=== PATIENT | male | born 1960 | race American Indian/Alaskan Native ===

== ENCOUNTER 2021-05-13 07:53 | Outpatient (CLI) | payer OTHER ==
--- NOTE | 2021-05-13 09:52 | Cat Scan Report ---
CT NECK WITH CONTRAST HISTORY: Right neck pain and swelling COMPARISON: None. TECHNIQUE: Routine CT of the neck is performed following intravenous contrast. All CT scans at this [facility] are performed using CT dose reduction for ALARA by means of automated exposure control. CONTRAST: 100 ml of Omnipaque 300 FINDINGS: Skull Base: No significant abnormality. Parotid, Carotid, Retropharyngeal, Prevertebral, Pharyngeal Mucosal, and [employer] Spaces: No abnorm al mass, enhancing lesion or other significant abnormality. Airway: Patent and without significant abnormality. Lymphatics: No lymphadenopathy. Vasculature: No significant abnormality. Osseous Structures: Mild multilevel cervical spondylosis. Additional findings: A large calcified stone in the right submandibular gland measuring up to 2.0 x 1 .3 x 1.6 cm. 3 smaller stones in the right submandibular gland measure up to 5 mm. The right submandi bular gland appears age atrophic with fatty atrophy. There also is a 1.0 x 0.6 cm stone in the distal right submandibular duct on axial image 41. The right submandibular duct appears slightly dilated co mpared to the left side. No additional salivary stones. IMPRESSION: Right-sided submandibular sialolithiasis as described above. Signer Name: Jey Rodríguez Jr, MD Signed: 05/13/2021 9:47 AM Workstation Name: [id number]
== END 2021-05-13 07:54 | disposition home or self-care (01) ==
LOC: CT 07:53
PROVIDERS: ATTEND Internal Medicine
DX: K11.5 Sialolithiasis (principal); M79.89 Other specified soft tissue disorders
CPT/HCPCS: 36415; 70491; 82565; 84520; Q9967

== ENCOUNTER 2021-07-01 09:22 | Outpatient (CLI) | payer OTHER ==
--- NOTE | 2021-07-01 11:58 | Magnetic Resonance Report ---
MRA HEAD WITHOUT CONTRAST HISTORY: Headache. Aneurysm screening. COMPARISON: none TECHNIQUE: Routine MRA of the head performed. 3-D/MIP reformats postprocessed. FINDINGS: MRA HEAD: Patient motion artifact is a limiting factor on this examination. OVERVIEW: There is no evidence of intracranial stenosis or large vessel occlusion. There is no eviden ce of aneurysm or other vascular malformation. Intracranial vertebral arteries: Normal and symmetrical vertebral arteries both contribute to the bas ilar artery origin. Basilar artery: Basilar artery has an unremarkable appearance. Posterior cerebral arteries: Normal and symmetrical appearing posterior cerebral arteries are identif ied. Bilateral, symmetrical posterior communicating arteries are identified. Intracranial internal carotid arteries: No significant abnormality. Anterior cerebral arteries: Bilaterally symmetrical A1 segments of the anterior cerebral arteries are demonstrated. No abnormalities are seen along the course of the A2 segments or visualized pericallos al branches. An intact anterior communicating artery is demonstrated. Middle cerebral arteries: Normal and symmetrical M1 segments are demonstrated bilaterally. No abnorma lities are seen on evaluation of the insular or opercular branches of the middle cerebral arteries. Diffusion weighted scans and axial and sagittal sagittal T1-weighted sequences were acquired as a par t of this study. Diffusion weighted images reveal no indication of recent ischemic injury. Evaluation of the craniocervical junction is remarkable for the presence of about 6 mm of cerebellar tonsillar ectopia. Cerebellar tonsils maintain a normal rounded appearance. Total volume of cerebrospinal fluid at the foramen magnum is reduced but there is no evidence of compression of the medulla or cervicome dullary junction. IMPRESSION: 1. Study somewhat limited by patient motion artifact. 2. No indication of aneurysm, intercranial stenosis or large vessel occlusion. 3. Borderline cerebellar tonsillar ectopia. Signer Name: Glen Landry MD Signed: 07/01/2021 11:54 AM Workstation Name: [id number]
== END 2021-07-01 09:23 | disposition home or self-care (01) ==
LOC: MRI 09:22
PROVIDERS: ATTEND Internal Medicine
DX: R51.9 Headache, unspecified (principal); Q04.8 Other specified congenital malformations of brain
CPT/HCPCS: 70544